=== PATIENT | male | born 1970 ===

== ENCOUNTER 2020-01-09 14:28 | Outpatient (CLI) | payer OTHER, SELFPAY ==
[2020-01-09 16:52] LABS: Free T4 Free Thyroxine 0.73 ng/mL (0.78-2.19)
[2020-01-12 04:58] LABS: Triiodothyronine T3 Free 2.2 pg/mL (2.3-4.2)
== END 2020-01-09 14:29 | disposition home or self-care (01) ==
LOC: ANHWCLAB 14:30
PROVIDERS: Visit Provider Internal Medicine Endocrinology, Diabetes & Metabolism
DX: E03.9 Hypothyroidism, unspecified (principal); E04.9 Nontoxic goiter, unspecified
CPT/HCPCS: 36415; 84439; 84443; 84481